=== PATIENT | male | born 1985 | race Caucasian/White ===

== ENCOUNTER 2021-06-16 18:00 | Emergency (ER) | payer OTHER, SELFPAY ==
[2021-06-16 18:26] VITALS: BP 137/89; PULSE 105; RESP 18; TEMP 36.9; O2SAT 98; BMI 24.2
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
[2021-06-16 19:02] VITALS: PULSE 95
[2021-06-16] MEDS: ketorolac 60 mg/2 mL INJ IM (19:21)
[2021-06-16] MEDS: cefTRIAXone 1,000 MG in lidocaine 1% 2.1 ML 1 MG IM (19:21)
[2021-06-16 19:43] VITALS: BP 144/79; PULSE 98; RESP 18; O2SAT 99
== END 2021-06-16 19:45 | disposition home or self-care (01) ==
PROVIDERS: Emergency Provider Physician Assistant
DX: L03.116 Cellulitis of left lower limb (principal)
CPT/HCPCS: 73590; 96372; 99283; J0696; J1885

== ENCOUNTER 2025-01-30 12:28 | Emergency (ER) | payer OTHER, SELFPAY ==
[2025-01-30 12:29] VITALS: BP 153/99; PULSE 91; TEMP 36.6; O2SAT 98; BMI 24.2
--- NOTE | 2025-01-30 13:14 | XR_ITS ---
WS: [id number] Right shoulder, 3 views, 01/30/2025 Clinical Data: pain x3 weeks to shoulder blade Comparison: None. Findings: No fractures or dislocations are seen. The AC joint is normal. The adjacent right clavicle, right scapula and ribs are normal. The soft tissues are unremarkable. XR/XR shoulder RT min 2V* [id number] Impression: Negative right shoulder.
[2025-01-30] MEDS: orphenadrine 30 mg/mL Inj 2 mL 60 MG IM (13:42)
[2025-01-30] MEDS: dexamethasone 10 mg/mL INJ IM (13:42)
[2025-01-30] MEDS: ketorolac 60 mg/2 mL INJ IM (13:42)
--- NOTE | 2025-01-30 14:07 | ED_ITS ---
HPI - Back Pain/Injury General: Chief Complaint: Back Pain/Injury Stated Complaint: back and R shoulder pain Time Seen by Provider: 01/30/25 12:48 Source: patient Mode of arrival: ambulatory Limitations: no limitations History of Present Illness: Patient is a 39-year-old male presents emerged department complaining of right upper back pain that has been bothering him intermittently for the past 3 weeks. 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 Currently rating the pain as a 9/10, worse with any movement at the right shoulder. States the pain occasionally radiates around to the right chest. He describes the pain as sharp, has been taking Tylenol and states this only takes the edge off. Denies any trauma, shortness of breath, abdominal pain, nausea/vomiting, fevers, or other symptoms at this time. MD elicited complaint: back pain (right posterior shoulder) Onset (ago): week(s) Timing: intermittent Severity: severe Similar Symptoms Previously: Yes Location: right upper back Radiation: chest Exacerbating factors: movement Relieving factors: immobilization Context: other (Occupation with repetitive heavy lifting) Associated symptoms: Deny abdominal pain, chills, fever(s), nausea or vomiting Treatments prior to arrival: acetaminophen Work related injury: Yes Related Data Home Medications ?Medication ?Instructions ?Recorded ?Confirmed acetaminophen 325 mg tablet 325 mg PO QID 01/30/25 (Tylenol) Previous Rx's ?Medication ?Instructions ?Recorded ketorolac 10 mg tablet 10 mg PO Q8H PRN pain #15 ta bs 01/30/25 methocarbamol 750 mg tablet 750 mg PO Q8H 5 days #15 t abs 01/30/25 prednisone 20 mg tablet 60 mg (3 x 20 mg) PO ONCE 5 days 01/30/25 #15 tabs Allergies Allergy/AdvReac Type Severity Reaction Status Date / Time No Known Drug Allergies Allergy Unknown Verified 01/30/25 12:35 shrimp Allergy Unknown Verified 01/30/25 12:35 Review of Systems General: Reports: 10 or more systems reviewed and unremarkable except in HPI and below Const: Denies: fever(s) or chills Card: Denies: chest pain Resp: Denies: dyspnea or productive cough GI: Denies: abdominal pain, nausea, vomiting or diarrhea : Denies: flank pain Musc: Reports: back pain, joint pain (rt shoulder) and limited range of motion; Denies: neck pain, extremity pain, extremity swelling, joint swelling, joint redness, joint warmth or muscle weakness Skin/Breast: Denies: rash Neuro: Denies: headache(s), numbness in extremities or weakness in extremities Physical Exam Const: COMMON NORMALS: no acute distress, patient oriented x3, no limitations, healthy appearing, alert and well nourished HENMT: COMMON NORMALS: normocephalic and atraumatic HEAD & SCALP: normocephalic and atraumatic Neck/C-Spine: COMMON NORMALS: full ROM, supple and no meningeal signs Resp: COMMON NORMALS: normal respiratory effort, No use of accessory muscles and clear to auscultation bilaterally AUSCULTATION: clear to auscultation bilaterally Cardio: COMMON NORMALS: regular rate and regular rhythm RATE: regular rate RHYTHM: regular rhythm Extremity: COMMON NORMALS: capillary refill normal, no joint enlargement and no clubbing, cyanosis or edema NARRATIVE EXTREMITY EXAM: Minimally reproducible tenderness to palpation to right scapular spine and deep back muscles. No signs of trauma or deformity. Reproducible pain with range of motion of the right shoulder, specifically abduction and adduction. No tenderness to the clavicle. Mild reproducible tenderness palpation right anterior chest wall. Neuro: COMMON NORMALS: patient oriented x3, moves all extremities, no focal motor deficits and no sensory deficits noted SENSORIUM/ORIENTATION: Yes alert MENINGEAL SIGNS: Yes no meningeal signs Skin: COMMON NORMALS: no rashes or lesions noted GENERAL SKIN EXAM: no rashes or lesions noted Course Vital Signs: Vital signs: Vital Signs Temperature 97.9 F 01/30/25 12:29 Pulse Rate 91 01/30/25 12:29 Blood Pressure 153/99 01/30/25 12:29 Pulse Oximetry 98 01/30/25 12:29 Oxygen Delivery Me thod Room Air 01/30/25 12:29 MDM - Back Pain/Injury Medical Decision Making Patient presented for 3 weeks of intermittent right posterior scapular pain/back pain. He does have an occupation where he is repetitively lifting heavy logs, and notes that after work today he will have significant pain in the morning following. Has undertaken Tylenol. Here and x-ray was negative for any acute findings in the shoulder/upper back on the right side. I do not suspect any other process other than musculoskeletal at this time, will treat conservatively with medications and have him return or follow-up with regular doctor if he continues to have worsening. Labs Radiology Impressions Shoulder X-Ray 01/30/25 13:14 Impression: Negative right shoulder. All radiology interpretation(s) finalized by discharge Discharge Plan Discharge Patient Disposition: Home Clinical Impression: Muscle strain of right upper back Qualifiers: Encounter type: initial encounter Qualified Code(s): S29.012A - Strain of muscle and tendon of back wall of thorax, initial encounter Condition: Stable Prescriptions: New prednisone 20 mg tablet 60 mg PO ONCE 5 Days Qty: 15 0RF ketorolac 10 mg tablet 10 mg PO Q8H PRN (Reason: pain) Qty: 15 0RF methocarbamol 750 mg tablet 750 mg PO Q8H 5 Days Qty: 15 0RF No Action acetaminophen [Tylenol] 325 mg Tablet 325 mg PO QID Discharge Orders: Discharge ED (Routine); Ordered 01/30/25 Ordered By: Joshua Guerra Patient Instructions: Muscle Strain (ED) Activity Restrictions/Additional Instructions: Range of motion exercises as tolerated. Ice and heat. Take medications as prescribed. Follow-up with regular doctor as arranged. Return with any new or worsening. Stand Alone Forms: Work/School Release Print Language: Anguillan Coding Level of Care Code ED Casting Machine Operator Automatic for Michelle Watkins
[2025-01-30 14:50] VITALS: BP 123/85; PULSE 70; O2SAT 97
--- NOTE | 2025-01-31 07:28 | DCPLANNER ---
messaged [facility] to establish PCP
== END 2025-01-30 14:53 | disposition home or self-care (01) ==
PROVIDERS: Emergency Provider Physician Assistant
DX: S29.012A Strain of muscle and tendon of back wall of thorax, initial encounter (principal); X58.XXXA Exposure to other specified factors, initial encounter
CPT/HCPCS: 73030; 96372; 99284; J1100; J1885; J2360

== ENCOUNTER 2025-03-27 14:45 | Emergency (ER) | payer OTHER, SELFPAY ==
[2025-03-27 14:48] VITALS: BP 150/89; PULSE 80; RESP 14; TEMP 36.7; O2SAT 97; BMI 24.2
--- NOTE | 2025-03-27 14:57 | XR_ITS ---
WS: [id number] Exam: XR elbow LT min 3V* [id number] Date/Time of Exam: 03/27/2025 3:01 PM Reason For Exam: elbow pain No fracture noted. The joints are preserved. Moderate joint effusion noted. Mild cortical bone spurring along the lateral epicondyle. XR/XR elbow LT min 3V* [id number] IMPRESSION: 1. Moderate joint effusion. No other significant finding.
--- NOTE | 2025-03-27 14:58 | W.ED.EXTPRO ---
HPI - Extremity Problem General: Chief complaint: Extremity Injury, Upper Stated complaint: left arm pain Time Seen by Provider: 03/27/25 14:55 Source: patient Mode of arrival: ambulatory Limitations: no limitations History of Present Illness: 40-year-old male states has been having left elbow pain for the last few weeks. 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 Denies any specific injuries denies any fever or warmth. States pain is improved with rest rates it a 2 out of 10 currently Associated symptoms: Deny chest pain, fever(s) or rash Related Data Home Medications ?Medication ?Instructions ?Recorded ?Confirmed acetaminophen 325 mg tablet 325 mg PO QID 01/30/25 01/30/25 (Tylenol) Previous Rx's ?Medication ?Instructions ?Recorded ketorolac 10 mg tablet 10 mg PO Q8H PRN pain #15 tabs 01/30/25 naproxen 500 mg tablet (Naprosyn) 500 mg PO BID PRN pain #20 tabs 03/27/25 Allergies Allergy/AdvReac Type Severity Reaction Status Date / Time No Known Drug Allergies Allergy Unknown Verified 01/30/25 12:35 shrimp Allergy ALGY-Anaphy Verified 03/27/25 14:53 laxis Review of Systems Const: Denies: fever(s), chills, body aches or change in appetite ENMT: Denies: throat pain or dental pain Card: Denies: chest pain Resp: Denies: dyspnea GI: Denies: abdominal pain, nausea, vomiting or diarrhea Musc: Reports: extremity pain; Denies: neck pain or back pain Skin/Breast: Denies: rash Neuro: Denies: headache(s) Physical Exam Const: COMMON NORMALS: no acute distress, patient oriented x3 and healthy appearing HENMT: COMMON NORMALS: normocephalic and atraumatic HEAD & SCALP: normocephalic and atraumatic Eye: COMMON NORMALS: conjunctivae normal CONJUNCTIVA: Yes conjunctivae normal Neck/C-Spine: COMMON NORMALS: full ROM and supple Chest: COMMONS NORMALS: normal inspection of the chest Resp: COMMON NORMALS: normal respiratory effort Cardio: COMMON NORMALS: regular rate RATE: regular rate Extremity: NARRATIVE EXTREMITY EXAM: Some pain with range of motion left elbow no obvious deformity no warmth to touch distal pulses sensation intact. Neuro: COMMON NORMALS: patient oriented x3, moves all extremities and no focal motor deficits Psych: COMMON NORMALS: mental status grossly normal, Normal thought process present and cooperative THOUGHT PROCESS: Normal thought process present Skin: COMMON NORMALS: no rashes or lesions noted and no wounds GENERAL SKIN EXAM: no rashes or lesions noted Course Vital Signs: Vital signs: Vital Signs Temperature 98.0 F 03/27/25 14:48 Pulse Rate 80 03/27/25 14:48 Respiratory Rate 14 03/27/25 14:48 Blood Pressure 150/89 03/27/25 14:48 Pulse Oximetry 97 03/27/25 14:48 Oxygen Delivery Me thod Room Air 03/27/25 14:48 MDM - Extremity (Nontraumatic) Medical Decision Making Patient presents here with elbow pain is likely a tendinitis x-ray here is negative he is to [facility] we will prescribe him Aleve follow-up with orthopedics. Medical Records I reviewed the patient's medical records. Lab Data Radiology Impressions Elbow X-Ray 03/27/25 14:57 IMPRESSION: 1. Moderate joint effusion. No other significant finding. All radiology interpretation(s) finalized by discharge Discharge Plan Discharge Patient Disposition: Home Clinical Impression: Elbow pain, left Condition: Stable Prescriptions: New naproxen [Naprosyn] 500 mg tablet 500 mg PO BID PRN (Reason: pain) Qty: 20 0RF No Action acetaminophen [Tylenol] 325 mg Tablet 325 mg PO QID ketorolac 10 mg tablet 10 mg PO Q8H PRN (Reason: pain) Qty: 15 0RF Discharge Orders: Discharge ED (Routine); Ordered 03/27/25 Ordered By: Constanza Robert Referrals: Cipriano Ruiz DO [Physician, Orthopedics] - 4-7 days Discharge Diet: Advance as tolerated Discharge Activity: Resume usual activity Patient Instructions: Tendinitis (ED), Elbow Strain (ED) Print Language: Kazakh Coding Level of Care Code ED Fabrics And Material Cutter for Michelle Watkins
[2025-03-27] MEDS: ketorolac 60 mg/2 mL INJ IM (15:12)
--- NOTE | 2025-03-28 08:31 | DCPLANNER ---
messaged ortho for er f/u
== END 2025-03-27 15:31 | disposition home or self-care (01) ==
PROVIDERS: Emergency Provider Emergency Medicine
DX: M25.522 Pain in left elbow (principal)
CPT/HCPCS: 73080; 96372; 99284; J1885